=== PATIENT | male | born 1945 | race Caucasian/White ===

== ENCOUNTER → 2016-07-17 | Outpatient (CLI) | payer MEDICARE, BC | END | disposition home or self-care (01) | LOC: MW.NM 10:21 | PROVIDERS: ATTEND Radiology Radiation Oncology | DX: C34.10 Malignant neoplasm of upper lobe, unspecified bronchus or lung (principal) ==

== ENCOUNTER → 2016-07-24 | Outpatient (CLI) | payer MEDICARE, BC ==
--- NOTE | 2016-07-24 10:44 | CR ---
EXAMINATION: Two-view chest (PA and Lateral views). HISTORY: 161.049. FINDINGS: The trachea is midline. The cardiomediastinal silhouette is within normal limits. No pulmonary infil trates, effusions or pneumothorax. There is a right-sided portacatheter noted with tip at the atrioc aval junction. Chronic interstitial changes are noted within the lungs bilaterally. Mild hyperinflat ion. Osseous structures appear unremarkable. IMPRESSION: Chronic interstitial changes and hyperinflation without an acute cardiopulmonary finding.
== END ==
LOC: MW.DI 09:09
PROVIDERS: ATTEND Internal Medicine Hematology & Oncology
DX: C34.10 Malignant neoplasm of upper lobe, unspecified bronchus or lung (principal); R91.8 Other nonspecific abnormal finding of lung field
CPT/HCPCS: 71020; 71020-26

== ENCOUNTER 2019-09-01 11:56 | Emergency (ER) | payer MEDICARE, BC ==
[2019-09-01 12:10] VITALS: BP 115/58; PULSE 65
[2019-09-01] MEDS ORDERED: Cyclobenzaprine 10 MG Tab PO ONE (12:34)
[2019-09-01] MEDS ORDERED: Acetaminophen/HYDROcodone 325-5 MG Tab PO ONE (12:34)
--- NOTE | 2019-09-01 12:41 | EDM.PDOC ---
ED HPI GENERAL MEDICAL PROBLEM - General Chief Complaint: General Stated Complaint: SHOULDER AND BACK PAIN Time Seen by Provider: 09/01/19 12:28 - History of Present Illness INITIAL COMMENTS - FREE TEXT/NARRATIVE: History of present illness: Patient presents with back pain is been present for 1 month he denies any injuries no weight loss no trouble breathing no chest pain back pain is midthoracic on the right side radiating from the shoulder blade down to the lower thoracic worse with movement he saw his regular doctor put him on Celebrex and this did not help he had x-rays done on that were read as negative according to the patient. He is here because he still in pain Review of systems: As per history of present illness and below otherwise all systems reviewed and negative. Past medical history: As per history of present illness and as reviewed below otherwise noncontributory. Surgical history: As per history of present illness and as reviewed below otherwise noncontributory. Social history: No reported history of drug or alcohol abuse. Family history: As per history of present illness and as reviewed below otherwise noncontributory. Physical exam: HEENT: Atraumatic, normocephalic, pupils reactive, negative for conjunctival pallor or scleral icterus, mucous membranes moist, throat clear, neck supple, nontender, trachea midline. Lungs: Clear to auscultation, breath sounds equal bilaterally, chest nontender. Heart: S1S2, regular, negative for clicks, rubs, or JVD. Abdomen: Soft, nondistended, nontender. Negative for masses or hepatosplenomegaly. Negative for costovertebral tenderness. Pelvis: Stable nontender. Genitourinary: Deferred. Rectal: Deferred. Extremities: Atraumatic, negative for cords or calf pain. Neurovascular unremarkable. Neuro: Awake, alert, oriented. Cranial nerves II through XII unremarkable. Cerebellum unremarkable. Motor and sensory unremarkable throughout. Exam nonfocal. Saddle anesthesia great toe strength is 5 out of 5 Back: There is palpable spasm that reproduces his pain at the level of T6-T8 no midline tenderness no pain to percussion of the spinal column Diagnostics: [] Therapeutics: [] Impression: [] Plan: [] Definitive disposition and diagnosis as appropriate pending reevaluation and review of above. upper back, bilateral shoulder blades Pain Score (Numeric/FACES): 10 - Related Data Allergies Allergy/AdvReac Type Severity Reaction Status Date / Time No Known Allergies Allergy Verified 09/01/19 12:10 Home Meds: Home Meds Albuterol [Proventil HFA] 1 puff INH Q4H PRN 09/21/14 [History] Finasteride [Proscar] 1 tab PO DAILY 09/21/14 [History] Metoprolol Succinate 1 tab PO DAILY 09/21/14 [History] Omeprazole 2 tab PO DAILY 09/21/14 [History] atorvaSTATin [Lipitor] 1 tab PO DAILY 09/21/14 [History] Acetaminophen/HYDROcodone [[place] 325-5 MG] 1 tab PO Q6H #12 tablet 09/01/19 [Rx] Cyclobenzaprine [Flexeril] 10 mg PO TID #30 tab 09/01/19 [Rx] Past Medical History Cardiovascular History: Reports: High Cholesterol Respiratory History: Reports: COPD Gastrointestinal History: Reports: GERD Musculoskeletal History: Reports: Arthritis Oncologic (Cancer) History: Reports: Lung - Infectious Disease History Infectious Disease History: Reports: Chicken Pox, Measles, Mumps Social & Family History - Family History Family Medical History: Noncontributory - Tobacco Use Smoking Status *Q: Current Every Day Smoker Years of Tobacco use: 50 Packs/Tins Daily: 1 - Caffeine Use Caffeine Use: Reports: Coffee - Recreational Drug Use Recreational Drug Use: No ED ROS GENERAL - Review of Systems Review Of Systems: See Below ED EXAM, GENERAL - Physical Exam Exam: See Below Course - Vital Signs Text/Narrative:: Be started on [place] and Flexeril follow-up with his primary care doctor. Last Recorded V/S: Last Vital Signs Temp 36.1 C 09/01/19 12:07 Pulse 65 09/01/19 12:07 Resp 20 09/01/19 12:07 BP 115/58 L 09/01/19 12:07 Pulse Ox 95 09/01/19 12:07 - Orders/Labs/Meds Meds: Medications Discontinued Medications Generic Name Dose Route Start Last Admin Trade Name Freq PRN Reason Stop Dose Admin Hydrocodone Bitart/Acetaminophen 1 tab 09/01/19 12:34 [place] 325-5 Mg PO 09/01/19 12:35 ONETIME ONE Cyclobenzaprine HCl 10 mg 09/01/19 12:34 Flexeril PO 09/01/19 12:35 ONETIME ONE Departure - Departure Time of Disposition: 12:35 Disposition: Home, Self-Care 01 Condition: Good Clinical Impression: Back pain - Discharge Information *PRESCRIPTION DRUG MONITORING PROGRAM REVIEWED*: Not Applicable *COPY OF PRESCRIPTION DRUG MONITORING REPORT IN PATIENT CARLO: Not Applicable Instructions: Chronic Back Pain, [id number] Referrals: Ragini Caceres MD [Primary Care Provider] - Forms: ED Department Discharge Sepsis Event Note (ED) - Evaluation Sepsis Screening Result: No Definite Risk - Focused Exam Vital Signs: Vital Signs Temp Pulse Resp BP Pulse Ox 09/01/19 12:07 36.1 C 65 20 115/58 L 95
== END 2019-09-01 12:57 | disposition home or self-care (01) ==
LOC: MW.ED 11:56
DX: M54.6 Pain in thoracic spine (principal); J44.9 Chronic obstructive pulmonary disease, unspecified; E78.00 Pure hypercholesterolemia, unspecified; K21.9 Gastro-esophageal reflux disease without esophagitis; F17.210 Nicotine dependence, cigarettes, uncomplicated; Z79.899 Other long term (current) drug therapy
CPT/HCPCS: 99283; A9270